=== PATIENT | female | born 1945 | race Caucasian/White ===

== ENCOUNTER 2021-02-18 10:02 | Emergency (ER) | payer MEDICARE, OTHER ==
[~2021-02-18] VITALS: Ht 160 cm; Wt 101.0 kg
--- NOTE | 2021-02-18 10:29 | NUR ---
left face drrop since noon yesterday (02/17/21) With exam-forehead involved=bells palsy. ERP to bedside to examine
[2021-02-18 11:15] VITALS: BP 122/99
== END 2021-02-18 11:17 | disposition home or self-care (01) ==
LOC: ED 10:51
DX: G51.0 Bell's palsy (principal); I10 Essential (primary) hypertension
CPT/HCPCS: 99283